=== PATIENT | female | born 2000 | race Caucasian/White ===

== ENCOUNTER 2018-12-28 08:01 | Emergency (ER) | payer OTHER ==
[~2018-12-28] VITALS: Ht 160 cm; Wt 56.8 kg
[2018-12-28 08:04] VITALS: TEMP 97
[2018-12-28] MEDS ORDERED: CIPRO 500MG TA500 MG PO ×3 (08:08→09:59)
[2018-12-28] MEDS ORDERED: ZOLOFT 100MG100 MG PO (08:09)
[2018-12-28 08:21] LABS: COLLECTION METHOD CLEAN CATCH
[2018-12-28 08:41] LABS: MUCOUS Present /lpf; PH 5 (5-8); URINE APPEARANCE Clear; URINE BACTERIA None Seen /hpf; URINE BILIRUBIN Negative (NEGATIVE); URINE BLOOD Negative (NEGATIVE); URINE COLOR Red; URINE GLUCOSE Negative (NEGATIVE); URINE KETONE Negative (NEGATIVE); URINE LEUKOCYTE ESTERASE Negative (NEGATIVE); URINE NITRATE Positive (NEGATIVE); URINE PROTEIN(semi-quant) 1+ (NEGATIVE); URINE RBC 0-2 /hpf; URINE UROBILINOGEN >=4.0 mg/dL (NEGATIVE)
[2018-12-28 08:41] LABS: BASO % 0.9 % (0.0-2.0); EOS # 0.1 (0.0-0.7); EOS % 1.9 % (0-4.0); GRAN # 2.1 (1.4-6.5); GRAN % 45.4 % (42.2-75.2); HEMATOCRIT 39.7 % (35.0-45.0); HEMOGLOBIN 13.3 g/dl (12.0-15.0); LYMPH # 2.1 (1.2-3.4); LYMPH % 44.6 % (20.0-51.0); MEAN CELL VOLUME 90 fl (80.0-95.0); MEAN CORPUSCULAR HEMOGLOBIN 30 pg (26.0-32.0); MEAN CORPUSCULAR HGB CONC 34 g/dl (33.0-37.0); MEAN PLATELET VOLUME 9.7 fl (7.4-10.4); MONO # 0.3 (0.1-0.6); PLATELET COUNT 248 K/mm3 (130-400); RED BLOOD COUNT 4.41 M/mm3 (4.10-5.30); REDCELL DISTRIBUTION WIDTH-CV 12.8 % (11.5-14.5)
[2018-12-28 08:55] LABS: ALANINE AMINOTRANSFERASE 32 U/L (9-52); ALBUMIN 4.9 gm/dL (3.5-5.0); ALKALINE PHOSPHATASE 68 U/L (50-136); ANION GAP 12 mmol/L (7-16); AST,SGOT 40 U/L (15-37); BILIRUBIN,TOTAL 0.6 mg/dL (0.0-1.0); BLOOD UREA NITROGEN 13 mg/dL (7-17); CALCIUM 9.5 mg/dL (8.4-10.2); CARBON DIOXIDE 23 mmol/L (22-30); CHLORIDE 104 mmol/L (98-107); CREATININE, serum 0.72 (0.52-1.25); GLUCOSE 89 mg/dL (74-106); POTASSIUM 4.1 mmol/L (3.4-5.0); SODIUM 139 mmol/L (137-145); TOTAL PROTEIN 8.1 gm/dL (6.4-8.2)
[2018-12-28 08:56] LABS: C-REACTIVE PROTEIN < 0.5 mg/dL (0.0-0.9)
[2018-12-28] MEDS ORDERED: ZOFRAN ODT4 MG PO (09:57)
[2018-12-28] MEDS ORDERED: CEFTIN500 MG PO (10:05)
[2018-12-28 10:26] VITALS: BP 115/77; PULSE 75
== END 2018-12-28 10:28 | disposition home or self-care (01) ==
LOC: COL.ER 08:01
PROVIDERS: Physician Assistant
DX: N39.0 Urinary tract infection, site not specified (principal); Z88.0 Allergy status to penicillin; Z88.2 Allergy status to sulfonamides; Z88.1 Allergy status to other antibiotic agents
CPT/HCPCS: J2405; J7030

== ENCOUNTER → 2018-12-30 | Outpatient (CLI) | payer OTHER ==
[~2018-12-30] MED LIST: CEFTIN500 MG PO; CIPRO 500MG TA500 MG PO; ZOFRAN ODT4 MG PO; ZOLOFT 100MG100 MG PO
== END ==
LOC: COL.RAD 12:19
DX: I63.9 Cerebral infarction, unspecified (principal); R11.2 Nausea with vomiting, unspecified; R10.819 Abdominal tenderness, unspecified site

== ENCOUNTER 2019-07-04 08:15 | Outpatient (RCR) | payer OTHER | END 2019-09-08 16:10 | disposition home or self-care (01) | LOC: WSOT 08:15 | DX: S62.614A Displaced fracture of proximal phalanx of right ring finger, initial encounter for closed fracture (principal); Z98.890 Other specified postprocedural states ==